=== PATIENT | male | born 1990 | race Caucasian/White ===

== ENCOUNTER 2025-02-16 02:29 | Emergency (ER) | payer OTHER, SELFPAY ==
[2025-02-16] VITALS (8 sets, daily range): BP systolic 121–138; BP diastolic 69–70; PULSE 91–109; RESP 12–16; TEMP 36.4; O2SAT 97–100
--- NOTE | 2025-02-16 02:31 | ECG_ITS ---
Test Date: 2025-02-16 02:31:07 Measurements Intervals [place] Rate: 103 P: 77 ME: 140 QRS: 59 QRSD: 106 T: 65 QT: 333 QTc: 436 Interpretive Statements SINUS TACHYCARDIA POSSIBLE LEFT ATRIAL ENLARGEMENT INCOMPLETE RIGHT BUNDLE BRANCH BLOCK BASELINE ARTIFACT- I, II, AVR BORDERLINE ECG No previous ECG available for comparison Electronically Signed On 02-16-2025 10:20:30 CDT by Kvng Maharaj D.O.
--- NOTE | 2025-02-16 02:48 | ED.ASTHMA ---
HPI - Asthma General Chief Complaint: Asthma Stated Complaint: ASTHMA ATTACK Time Seen by Provider: 02/16/25 02:31 History of Present Illness HPI Narrative: Patient is a 34-year-old male who presents to the emergency department this evening complaining of an asthma attack. Patient states that he woke up and went to go use the bathroom and started having shortness of breath. Patient used a few puffs of his inhaler with no relief. He did inform family members who drove him to a police station and please called EMS and patient was brought to our facility for further evaluation. Upon EMS arrival, patient was having bilateral wheezing with rapid respirations. Patient was administered a DuoNeb breathing treatment with significant improvement of his symptoms and near resolution of his wheezing. Patient states that he feels significantly better. Denies any additional symptoms or concerns at this time. Related Data Allergies Allergy/AdvReac Type Severity Reaction Status Date / Time No Known Allergies Allergy Verified 02/16/25 02:46 Review of Systems Review of Systems: All systems are reviewed and are negative unless stated otherwise in the HPI. Exam Narrative: General: Alert, awake, afebrile, in no acute distress. HEENT: PERRL, no rhinorrhea, no post nasal drip, oropharynx clear. Neck: Trachea midline, no JVD, no lymphadenopathy. Cardiovascular: Regular rate and rhythm, no murmurs, rubs or gallops, no peripheral edema. Respiratory: Very faint and expiratory wheeze, no tachypnea, no respiratory distress. Abdomen: Soft, nontender, nondistended, no rebound, no guarding, no peritoneal signs. Musculoskeletal: No joint swelling or deformity, normal muscle tone. Skin: No rashes or petechia, no signs of infection. Psychiatric: Alert and oriented, normal behavior and judgment for situation. Neurological: Alert and oriented to person, place, and time. Follows all commands. No focal deficits, speech is clear and fluent. Course Vital Signs Vital signs: Vital Signs Temperature 97.6 F 02/16/25 02:28 Pulse Rate 103 H 02/16/25 02:28 Respiratory Rate 12 02/16/25 02:28 Blood Pressure 138/70 02/16/25 02:28 Pulse Oximetry 97 02/16/25 02:28 Temperature 97.6 F 02/16/25 02:28 Pulse Rate 109 H 02/16/25 02:45 Respiratory Rate 12 02/16/25 02:28 Blood Pressure 138/70 02/16/25 02:28 Pulse Oximetry 98 02/16/25 02:44 Oxygen Delivery Room Air 02/16/25 02:44 MDM - Asthma MDM Narrative Medical decision making narrative: The patient was evaluated by myself in the emergency department. History is obtained from patient who is an independent historian and physical exam was performed. External medical records were reviewed at this time. Patient was administered a 2nd DuoNeb breathing treatment in the emergency department and 125 mg of IM Solu-Medrol pain Differential diagnosis considerations include asthma exacerbation, acute viral syndrome, bronchospasms, pneumonia although unlikely giving patient's sudden onset symptoms and lack of infectious signs such as fever. Comorbidities impacting this visit include history of asthma. I have evaluated and discussed social determinants of health with the patient that could potentially impact subsequent diagnosis and treatment plans. On repeat assessment of the patient, reevaluation revealed that the patient is doing well and is in no acute distress. Patient symptoms have improved since he arrived to our emergency department. Repeat vital signs were all reviewed and noted to be stable. Differential diagnosis and treatment plan were discussed with the patient at bedside. Patient agrees with discussion and after shared medical decision making agrees with discharge. All questions were answered to the patient's satisfaction. Patient will follow up with his PCP in 3-5 days. A script for Medrol Dosepak was advised pharmacy to use as prescribed for his asthma. Patient was provided with strict return precautions and instructed to return to the emergency department if any new or worsening symptoms develop. The patient was discharged in stable condition. Discharge Plan Discharge Clinical Impression: Asthma with acute exacerbation Patient Disposition: Home Condition: Improved Instructions: Antibiotic Form, Asthma (ED) Additional Instructions: Please follow-up with your family doctor within the next 3-5 days. Take the prescribed steroids as instructed. Return to the ED if any new or worsening symptoms develop. Patient Language: Wallisian Prescriptions: New methylprednisolone [Medrol (Balta)] 4 mg tablets,dose pack See Rx Instructions .ROUTE .COMPLEX Qty: 21 0RF Rx Instructions: for 6 days Time of Disposition: 02:47
--- OUTSIDE RECORDS SUMMARY | 2025-02-16 02:59 | XMS_ITS | Encounter Summary ---
Author Organization [facility] Address [address] [place] [address] Phone Care Team Providers Care Card Cleaner Name Role Phone Meredith Rodriguez MD Primary Care Provider Silvano Rizvi APRN, CNP Primary Care Pr ovider Reason for Visit * Reason Comments Medication Refill Encounter Details Date Type Department Care Team (Late st Contact Info) Description 04/28/2020 Refill [facility] [address] [place] [address] Meredith Rodriguez MD [address] [place] [address] Medication Refill Social History Tobacco Use Types Packs/Day Years Used Date Smoking Tobacco: Former Cigarettes Q uit: 05/19/2018 Smokeless Tobacco: Never Alcohol Use Standard Drinks/Week Comments Yes 1 (1 standard drink = 0.6 oz pur e alcohol) Sexually Active Control Partners Comments Yes Sex and Gender Information Value Date Recorded Sex Assigned at Not on file Legal Sex Male 11:39 PM CDT Gender Identity Not on file Sexual Orientation Not on file documented as of this encounter Miscellaneous Notes * Telephone Encounter - Reyna Cordoba [place] - 04/29/2020 8:49 AM CDT Medication failed the protocol provider to review and approve the medication order. Requested Prescriptions Pending Prescriptions Disp Refills Qvar RediHaler 80 MCG/ACT AEROSOL, BREATH ACTIVATED [Pharmacy Med Name: Qvar RediHaler 80 MCG/ACT Inhalation Aerosol Breath Activated] 1 Inhaler 4 Sig: Inhale 2 puffs by mouth twice daily Pulmonology: Corticosteroids Passed - 04/28/2020 5:30 AM Passed - Valid encounter within last 12 months Past Office Visits Recent Outpatient Visits 3 months ago Uncomplicated asthma, unspecified asthma severity, unspecified whether persistent [facility] - Primary Care Meredith Rodriguez MD 1 year ago Pityriasis rosea [facility] Medical [facility] - Primary Care Meredith Rodriguez MD 1 year ago Encounter for preventive health examination (Adult) [facility] - Primary Care Nadja Bal APN, CHRISTEL 2 years ago Depression with anxiety [facility] Meredith Rodriguez MD 2 years ago Depression with anxiety [facility] Primary [facility] Meredith Rodriguez MD Upcoming Appointments [facility] - Recent and Past Visits Recent Visits Date Type Provider Dept 01/01/20 Telemedicine Meredith Rodriguez MD [facility] Showing recent visits within past 460 days with a meds authorizing provider and meeting all other requirements Future Appointments No visits were found meeting these conditions. Showing future appointments within next 90 days with a meds authorizing provider and meeting all other requirements * Telephone Encounter - Reyna Cordoba - 04/29/2020 8:49 AM CDT Quantity greater than originally prescribed, routing to PCP for approval. documented in this encounter Plan of Treatment Not on file documented as of this encounter Visit Diagnoses Diagnosis Uncomplicated asthma, unspecified asthma severity, unspecified whether persistent documented in this encounter Additional Health Concerns Infection Onset Date Last Indicated Resolved Time COVID - 19 07/30/2021 07/30/2021 08/19/2021 12:1 6 AM CHAIR Assessment Noted Time PHQ-9 Depression Total Score: 0 10/24/19 18 12:45 PM CHAIR documented as of this encounter Care Teams Card Cleaner Relationship Specialty Start Date End Date Meredith Rodriguez MD PCP - General Family Medicine 06/22/15 03/28/22 Silvano Rizvi APRN, [employer] [address] [place] [address] PCP - General Advanced Practice Nurse 03/29/22 documented as of this encounter
--- OUTSIDE RECORDS SUMMARY | 2025-02-16 02:59 | XMS_ITS | Encounter Summary ---
Author Organization [facility] Address [address] [place] [address] Phone Care Team Providers Care Quiller Operator Name Role Phone Meredith Rodriguez MD Primary Care Provider [phone] Silvano Rizvi APRN, FUELER Primary Care Pr ovider Reason for Visit * Reason Onset Date Comments Medication Refill Medication Refill 09/20/2020 albuterol Encounter Details Date Type Department Care Team (Late st Contact Info) Description 09/16/[address] [facility] [address] [place] [address] Meredith Rodriguez MD [address] [place], [place] [id number] Medication Refill; Medication Refill (albuterol ) Social History Tobacco Use Types Packs/Day Years Used Date Smoking Tobacco: Every Day Cigarettes Last attempted to quit: 05/19/2018 Smokeless Tobacco: Never Alcohol Use Standard [...] encounter Miscellaneous Notes * Telephone Encounter - Jesenia Siegel RN - 09/20/2020 9:34 AM PERSONAL LINES INSURANCE AGENT Medication failed the protocol, provider to review and approve the medication order if appropriate. Requested Prescriptions Pending Prescriptions Disp Refills albuterol (ProAir HFA) 108 (90 Base) MCG/ACT Aerosol Solution 18 g 0 Sig: take 2 Puffs by inhalation every 4 hours as needed for Wheezing. Pulmonology: Beta Agonists - Albuterol & Levalbuterol Failed - 09/20/2020 8:50 AM Failed - Valid encounter within last 6 months Past Office Visits Recent Outpatient Visits 8 months ago Uncomplicated asthma, unspecified asthma severity, unspecified whether persistent [facility] - Meredith Ying MD 2 years ago Pityriasis rosea [facility] - Meredith Ying MD 2 years ago Encounter for preventive health examination (Adult) [facility] Villed[facility] APN, CHRISTEL 2 years ago Depression with anxiety [facility] - Meredith Carrero MD 3 years ago Depression with anxiety [facility] - Meredith Carrero MD Upcoming Appointments Future Appointments In 3 weeks Meredith Rodriguez MD [facility] CIGARETTE INSPECTOR - Recent and Past Visits Recent Visits Date Type Provider Dept 01/01/20 Telemedicine Meredith Rodriguez MD [facility] Showing recent visits within past 460 days with a meds authorizing provider and meeting all other requirements Future Appointments Date Type Provider Dept 10/11/20 Appointment Meredith Rodriguez MD [facility] Showing future appointments within next 90 days with a meds authorizing provider and meeting all other requirements Failed - May refill 2 inhalers, 0 refills one time since last office visit. May refill #50 nebulizer vials, 0 refills for albuterol or #48 vials, 0 refills for Xopenex one time since last office visit. Passed - Last BP in normal range BP Readings from Last 1 Encounters: 07/03/20 92/66 Signed Prescriptions Disp Refills Qvar RediHaler 80 MCG/ACT AEROSOL, BREATH ACTIVATED 11 g 0 Sig: Inhale 2 puffs by mouth twice daily Pulmonology: Corticosteroids Passed - 09/19/2020 10:55 AM Passed - Valid encounter within last 12 months Past Office Visits Recent Outpatient Visits 8 months ago Uncomplicated asthma, unspecified asthma severity, unspecified whether persistent [facility] - Meredith Ying MD 2 years ago Evans aldridge [facility] - Meredith Ying MD 2 years ago Encounter for preventive health examination (Adult) [facility] Decker APN, FUELER 2 years ago Depression with anxiety [facility] Meredith Carrero MD 3 years ago Depression with anxiety [facility] Meredith Carrero MD Upcoming Appointments Future Appointments In 3 weeks Meredith Rodriguez MD [facility] - Recent and Past Visits Recent Visits Date Type Provider Dept 01/01/20 Telemedicine Meredith Rodriguez MD [facility] Showing recent visits within past 460 days with a meds authorizing provider and meeting all other requirements Future Appointments Date Type Provider Dept 10/11/20 Appointment Meredith Rodriguez MD [facility] Showing future appointments within next 90 days with a meds authorizing provider and meeting all other requirements ProAir HFA 108 (90 Base) MCG/ACT Aerosol Solution 18 g 0 Sig: INHALE 2 PUFFS BY MOUTH EVERY 4 HOURS NEEDED FOR WHEEZING Pulmonology: Beta Agonists - Albuterol & Levalbuterol Failed - 09/19/2020 10:55 AM Failed - Valid encounter within last 6 months Past Office Visits Recent Outpatient Visits 8 months ago Uncomplicated asthma, unspecified asthma severity, unspecified whether persistent [facility] - Meredith Ying MD 2 years ago Pityrreema aldridge [facility] - Meredith Ying MD 2 years ago Encounter for preventive health examination (Adult) [facility] Villeda APN, FUELER 2 years ago Depression with anxiety [facility] Meredith Carrero MD 3 years ago Depression with anxiety [facility] Medical [facility] - Meredith Carrero MD Upcoming Appointments Future Appointments In 3 weeks Meredith Rodriguez MD [facility] CIGARETTE INSPECTOR - Recent and Past Visits Recent Visits Date Type Provider Dept 01/01/20 Telemedicine Meredith Rodriguez MD [facility] Showing recent visits within past 460 days with a meds authorizing provider and meeting all other requirements Future Appointments Date Type Provider Dept 10/11/20 Appointment Meredith Rodriguez MD [facility] Showing future appointments within next 90 days with a meds authorizing provider and meeting all other requirements Failed - May refill 2 inhalers, 0 refills one time since last office visit. May refill #50 nebulizer vials, 0 refills for albuterol or #48 vials, 0 refills for Xopenex one time since last office visit. Passed - Last BP in normal range BP Readings from Last 1 Encounters: 07/03/20 92/66 ONAL LINES INSURANCE AGENT * Telephone Encounter - Kenya Soares - 09/20/2020 8:46 AM CST [facility] called stating ProAir brand is not covered and is requesting Rx for generic for coverage. Rx from 09/19/20 ordered with DANNY 1 (brand only) Previous order from 01/01/20 ordered as generic. Received: []FAX [x]TELEPHONE CALL []MYCHART from: []PHARMACY [x]PATIENT/OTHER regarding medication management. Medication name and dose: Requested Prescriptions Signed Prescriptions Disp Refills ??? Qvar RediHaler 80 MCG/ACT AEROSOL, BREATH ACTIVATED 11 g 0 Sig: Inhale 2 puffs by mouth twice daily Authorizing Provider: MEREDITH RODRIGUEZ ??? ProAir HFA 108 (90 Base) MCG/ACT Aerosol Solution 18 g 0 Sig: INHALE 2 PUFFS BY MOUTH EVERY 4 HOURS NEEDED FOR WHEEZING Authorizing Provider: MEREDITH RODRIGUEZ Quantity: (30 day, 90 day, 3 monthly scripts) 11 g Pharmacy preference for this medication: [facility] [place] Outcome: [x]Medication pended, routed to surescripts []Medication refused []Informed caller of refills at pharmacy [x]Additional message to medication management RN []Verbal authorization for written order to pharmacy [x]Additional message to provider []Verified medication with pharmacy Eda Reveles MA Medication Management ONAL LINES INSURANCE AGENT * Telephone Encounter - Shanda Madera, [facility] - 09/19/2020 10:55 AM PERSONAL LINES INSURANCE AGENT Medication failed the protocol, provider to review and approve the medication order if appropriate. Requested Prescriptions Pending Prescriptions Disp Refills Qvar RediHaler 80 MCG/ACT AEROSOL, BREATH ACTIVATED [Pharmacy Med Name: Qvar RediHaler 80 MCG/ACT Inhalation Aerosol Breath Activated] 11 g 0 Sig: Inhale 2 puffs by mouth twice daily Pulmonology: Corticosteroids Passed - 09/19/2020 10:55 AM Passed - Valid encounter within last 12 months Past Office Visits Recent Outpatient Visits 8 months ago Uncomplicated asthma, unspecified asthma severity, unspecified whether persistent [facility] - Meredith Ying MD 2 years ago Pityriasis rosea [facility] - Meredith Ying MD 2 years ago Encounter for preventive health examination (Adult) [facility] Nadja Bal APN, FUELER 2 years ago Depression with anxiety [facility] - Meredith Carrero MD 3 years ago Depression with anxiety [facility] Meredith Carrero MD Upcoming Appointments Future Appointments In 3 weeks Meredith Rodriguez MD [facility] [place] CIGARETTE INSPECTOR - Recent and Past Visits Recent Visits Date Type Provider Dept 01/01/20 Telemedicine Meredith Rodriguez MD [facility] [place] [place] Showing recent visits within past 460 days with a meds authorizing provider and meeting all other requirements Future Appointments Date Type Provider Dept 10/11/20 Appointment Meredith Rodriguez MD [facility] Showing future appointments within next 90 days with a meds authorizing provider and meeting all other requirements ProAir HFA 108 (90 Base) MCG/ACT Aerosol Solution [Pharmacy Med Name: ProAir HFA 108 (90 Base) MCG/ACT Inhalation Aerosol Solution] 18 g 0 Sig: INHALE 2 PUFFS BY MOUTH EVERY 4 HOURS NEEDED FOR WHEEZING Pulmonology: Beta Agonists - Albuterol & Levalbuterol Failed - 09/19/2020 10:55 AM Failed - Valid encounter within last 6 months Past Office Visits Recent Outpatient Visits 8 months ago Uncomplicated asthma, unspecified asthma severity, unspecified whether persistent [facility] - Meredith Ying MD 2 years ago Pityriasis rosea [facility] - Meredith Ying MD 2 years ago Encounter for preventive health examination (Adult) [facility] Nadja Bal APN, FUELER 2 years ago Depression with anxiety [facility] - Meredith Carrero MD 3 years ago Depression with anxiety [facility] - Meredith Carrero MD Upcoming Appointments Future Appointments In 3 weeks Meredith Rodriguez MD [facility] - Recent and Past Visits Recent Visits Date Type Provider Dept 01/01/20 Telemedicine Meredith Rodriguez MD [facility] Showing recent visits within past 460 days with a meds authorizing provider and meeting all other requirements Future Appointments Date Type Provider Dept 10/11/20 Appointment Meredith Rodriguez MD [facility] Showing future appointments within next 90 days with a meds authorizing provider and meeting all other requirements Failed - May refill 2 inhalers, 0 refills one time since last office visit. May refill #50 nebulizer vials, 0 refills for albuterol or #48 vials, 0 refills for Xopenex one time since last office visit. Passed - Last BP in normal range BP Readings from Last 1 Encounters: 07/03/20 92/66 ONAL LINES INSURANCE AGENT documented in this encounter Plan of Treatment Not on file documented as of this encounter Visit Diagnoses Diagnosis Uncomplicated asthma, unspecified asthma severity, unspecified whether persistent documented in this encounter Additional Health Concerns Infection Onset Date Last Indicated Resolved Time COVID - 19 07/30/2021 07/30/2021 08/19/2021 12:1 6 AM PERSONAL LINES INSURANCE AGENT Assessment Noted Time PHQ-9 Depression Total Score: 0 10/24/19 18 12:45 PM PERSONAL LINES INSURANCE AGENT documented as of this encounter Care Teams Quiller Operator Relationship Specialty Start Date End Date Meredith Rodriguez MD PCP - General Family Medicine 06/22/15 03/28/22 Silvano Rizvi APRN, [facility]ER [address] [address] PCP - General Advanced Practice Nurse 03/29/22 documented as of this encounter
--- OUTSIDE RECORDS SUMMARY | 2025-02-16 02:59 | XMS_ITS | Clinical Summary ---
Author Organization [facility] Address [address] [place] [address] Care Team Providers Care Marshmallow Maker Name Role Phone No, Physician Primary Care Provider [phone] Allergies No known active allergies Medications beclomethasone (QVAR) 80 mcg/actuation inhaler inhale 2 puff by inhalation route 2 times every day 0 Inhaler 0 6 Active albuterol HFA (PROVENTIL HFA,VENTOLIN HFA) 90 mcg/actuation inhaler inhale 2 puff by inhalation route every 4 - 6 hours as needed 0 Inhaler 0 6 Active albuterol HFA (PROVENTIL HFA,VENTOLIN HFA,PROAIR HFA) 90 mcg/actuation inhaler Inhale 2 puffs every 4 (four) hours as needed for wheezing 1 each 3 4 05/11/20 25 Active Active Problems Problem Noted Date Diagnosed Date Impacted cerumen 10/08/2015 Overview (12/14/2016): Impacted cerumen of left ear Social History Tobacco Use Types Packs/Day Years Used Date Smoking Tobacco: Never Assessed Personal Safety Answer Date Recorded Have you ever been in or are you currently in a harmful physical or emotional relationship or is someone making you feel afraid or unsafe? Denies 05/10/2024 Sex and Gender Information Value Date Recorded Sex Assigned at Not on file Legal Sex Male 3:58 AM MARKETING FINANCE MANAGER Gender Identity Not on file Sexual Orientation Not on file Obstetrics History Last Filed Vital Signs Vital Sign Reading Time Taken Comments Blood Pressure 120/66 05/11/2024 2:45 AM CDT Pulse 56 05/11/2024 2:45 AM CDT Temperature 37 C (98.6 F) 05/10/2024 11:27 PM CDT Respiratory Rate 16 05/11/2024 2:45 AM CDT Oxygen Saturation 95% 05/11/2024 2:45 AM CDT Inhaled Oxygen Concentration - - Weight 72.6 kg (160 lb) 05/10/2024 11:27 PM CDT Height 175.3 cm (5' 9) 05/10/2024 11:27 PM CDT Body Mass Index 23.63 05/10/2024 11:27 PM CDT Plan of Treatment Health Maintenance Due Date Last Done Comments Depression Screening 1991 Hepatitis C Screening 1991 Varicella Vaccines (1 of 2 - 13+ 2-dose series) 2004 Regular Well Visit/Exam 18-64 2009 Pneumococcal vaccine <65 (2 of 2 - PCV) 04/09/2012 04/09/2011 Covid-19 Vaccine (2 - 2023-2 5 season) 2024 01/24/2021 Influenza Vaccine (Season Ended) 2025 DTaP/Tdap/Td Vaccine (2 - Td or Tdap) 02/11/2027 02/11/2017, 09/09/2007 Hepatitis B Screening Completed 11/28/2001 , 07/04/2001, 05/30/2001 HPV Vaccines Aged Out No longer eligi ble based on patient's age to complete this topic Insurance [place] [employer] Care Teams Marshmallow Maker Relationship Specialty Start Date End Date No, Physician PCP - General 05/11/24
--- OUTSIDE RECORDS SUMMARY | 2025-02-16 02:59 | XMS_ITS | Encounter Summary ---
Author Organization [facility] Address [address] [place] [address] Phone Care Team Providers Care Windmill Technician Name Role Phone Meredith Rodriguez MD Primary Care Provider [phone] Silvano Rizvi APRN, MILLING/POLISHING OPERATOR Primary Care Pr ovider Reason for Visit * Reason Comments Medication Refill Encounter Details Date Type Department Care Team (Late st Contact Info) Description 03/06/2021 Refill [facility] [address] [place], [place] [id number] Meredith Rodriguez MD [address] [place], [place] [id number] Medication Refill Social History Tobacco Use Types [...] on file documented as of this encounter Plan of Treatment Not on file documented as of this encounter Visit Diagnoses Diagnosis Uncomplicated asthma, unspecified asthma severity, unspecified whether persistent documented in this encounter Additional Health Concerns Infection Onset Date Last Indicated Resolved Time COVID - 19 07/30/2021 07/30/2021 08/19/2021 12:1 6 AM BUSINESS SALES CONSULTANT Assessment Noted Time PHQ-9 Depression Total Score: 0 10/24/19 18 12:45 PM BUSINESS SALES CONSULTANT documented as of this encounter Care Teams Windmill Technician Relationship Specialty Start Date End Date Meredith Rodriguez MD PCP - General Family Medicine 06/22/15 03/28/22 Silvano Rizvi APRN, MILLING/POLISHING OPERATOR [address] [place] [id number] PCP - General Advanced Practice Nurse 03/29/22 documented as of this encounter
--- OUTSIDE RECORDS SUMMARY | 2025-02-16 02:59 | XMS_ITS | Referral Summary ---
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
--- OUTSIDE RECORDS SUMMARY | 2025-02-16 02:59 | XMS_ITS | Encounter Summary ---
Author Organization [facility] Address [address] [place] [address] Phone Care Team Providers Care Collision Repair Technician Name Role Phone Meredith Rodriguez MD Primary Care Provider Silvano Rizvi APRN, COMMERCIAL LOAN MANAGER Primary Care Pr ovider Reason for Visit * Reason Comments Medication Refill Encounter Details Date Type Department Care Team (Late st Contact Info) Description 12/09/2020 Refill [facility] [address] [place], [place] [id number] Meredith Rodriguez MD [address] [place], [place] [id number] Medication Refill Social History Tobacco Use Types [...] encounter Miscellaneous Notes * Telephone Encounter - Colette Tabares RN - 12/09/2020 2:26 PM CDT Per nursing clinical judgement, provider to review and approve the medication(s) order(s) if appropriate. Requested Prescriptions Pending Prescriptions Disp Refills Qvar RediHaler 80 MCG/ACT AEROSOL, BREATH ACTIVATED [Pharmacy Med Name: Qvar RediHaler 80 MCG/ACT Inhalation Aerosol Breath Activated] 11 g 0 Sig: Inhale 2 puffs by mouth twice daily Pulmonology: Corticosteroids Passed - 12/09/2020 2:25 PM Passed - Valid encounter within last 12 months Past Office Visits Recent Outpatient Visits 1 month ago Physical exam, annual (Adult) [facility] Meredith Rodriguez MD 11 months ago Uncomplicated asthma, unspecified asthma severity, unspecified whether persistent [facility] 2 years ago Pityriasis rosea [facility] MD 2 years ago Encounter for preventive health examination (Adult) [facility] [place] [facility] Nadja Bal APN, CHRISTEL 3 years ago Depression with anxiety [facility] Meredith Carrero MD Upcoming Appointments BOWLING BALL MOLD ASSEMBLER - Recent and Past Visits Recent Visits Date Type Provider Dept 10/11/20 Office Visit Meredith Rodriguez MD [facility] 01/01/20 Telemedicine Meredith Rodriguez MD [facility] Showing recent visits within past 460 days with a meds authorizing provider and meeting all other requirements Future Appointments No visits were found meeting these conditions. Showing future appointments within next 90 days with a meds authorizing provider and meeting all other requirements documented in this encounter Plan of Treatment Not on file documented as of this encounter Visit Diagnoses Diagnosis Uncomplicated asthma, unspecified asthma severity, unspecified whether persistent documented in this encounter Additional Health Concerns Infection Onset Date Last Indicated Resolved Time COVID - 19 07/30/2021 07/30/2021 08/19/2021 12:1 6 AM THERAPEUTIC ACTIVITIES SERVICES WORKER Assessment Noted Time PHQ-9 Depression Total Score: 0 10/24/19 18 12:45 PM THERAPEUTIC ACTIVITIES SERVICES WORKER documented as of this encounter Care Teams Collision Repair Technician Relationship Specialty Start Date End Date Meredith Rodriguez MD PCP - General Family Medicine 06/22/15 03/28/22 Silvano Rizvi APRN, COMMERCIAL LOAN MANAGER #[address] [id number] PCP - General Advanced Practice Nurse 03/29/22 documented as of this encounter
--- OUTSIDE RECORDS SUMMARY | 2025-02-16 02:59 | XMS_ITS | Clinical Summary ---
Author Organization [facility] Address [address], [facility] [address] [place] [address] Phone Care Team Providers Care Investment Broker Name Role Phone Silvano Rizvi APRN, CHRISTEL Primary Care Pr ovider Allergies Active Allergy Reactions Criticality Noted Date Comments Other Unknown Seasonal Allergies, Triaminic cough syrup- caused an asthma attack when pt was a child Medications Beclomethasone Diprop HFA (Qvar RediHaler) 80 MCG/ACT AEROSOL, BREATH ACTIVATEDIndicat ions:Uncomplicat ed asthma, unspecified asthma severity, unspecified whether persistent take 2 Puffs by inhalation in the morning and at bedtime. 11 g 2 Active albuterol 108 (90 Base) MCG/ACT Aerosol SolutionIndicati ons:Uncomplicate d asthma, unspecified asthma severity, unspecified whether persistent take 2 Puffs by inhalation every 4 hours as needed for Wheezing. 18 g 5 2 Active Nutritional Supplements (NUTRITIONAL SUPPLEMENT PO) Take by mouth daily. Anthony growth supplement Active fluticasone (FLONASE) 50 MCG/ACT Suspension 1-2 Sprays by Nasal route daily. Use in each nostril as directed. 11.1 mL 3 Active neomycin-polymyx in-dexamethasone (MAXITROL) 3.5-89843-8.1 SuspensionIndica tions:Other infective acute otitis externa of both ears Place 4 Drops in both ears 2 times daily. 5 mL 4 Active Active Problems Problem Noted Date Diagnosed Date IFG (impaired fasting glucose) 10/11/2020 Tobacco use disorder 08/22/2017 Seasonal allergic rhinitis 10/04/2016 Depression with anxiety 10/04/2016 Gastroesophageal reflux disease 10/04/2016 Asthma Overview (07/22/2015): At age 3 High triglycerides Immunizations Immunization Administration Dates Next Due Hepatitis B Vaccine, Pediatric/adolescent 2001,07/04/2001,05/30/2001 Pneumococcal Vaccine Adult - 23 Valent 1 TD VACCINE 09/09/2007 TDAP Vaccine 02/11/2017 Social History Tobacco Use Types Packs/Day Years Used Date Smoking Tobacco: Every Day Cigarettes Last attempted to quit: 05/19/2018 Smokeless Tobacco: Never Tobacco Cessation:Ready to Q uit: Not Asked; Counseling Given: Not Answered Alcohol Use Standard Drinks/Week Comments Yes 1 (1 standard drink = 0.6 oz pur e alcohol) Occasionally Sexually Active Control Partners Comments Yes Sex and Gender Information Value Date Recorded Sex Assigned at Not on file Legal Sex Male 11:39 PM CDT Gender Identity Not on file Sexual Orientation Not on file Last Filed Vital Signs Vital Sign Reading Time Taken Comments Blood Pressure 114/70 01/06/2024 2:15 PM CDT Pulse 70 01/06/2024 2:15 PM CDT Temperature 36.9 C (98.4 F) 01/06/2024 2:15 PM CDT Respiratory Rate 16 01/06/2024 2:15 PM CDT Oxygen Saturation 99% 01/06/2024 2:15 PM CDT Inhaled Oxygen Concentration - - Weight 72.6 kg (160 lb) 06/25/2023 5:01 PM CDT Height 182.9 cm (6') 07/20/2022 1:51 PM HEAD GAUGE UNIT OPERATOR Body Mass Index 21.7 07/20/2022 1:51 PM HEAD GAUGE UNIT OPERATOR Plan of Treatment Health Maintenance Due Date Last Done Comments Hepatitis C Virus (HCV) Screening 1991 Pneumococcal Immunization Combined (2 of 2 - PCV) 04/09/2012 04/09/2011 Influenza Immunization (#1) 2024 SARS-COV-2 Immunization (2 - season) 2024 01/24/2021 Td Immunization Every 10 Yea rs (Adults With 1 Tdap) 02/11/2027 02/11/2017, 09/09/2007 Respiratory Syncytial Virus (RSV) Immunization (Adult) (1 - 1-dose 75+ series) 2066 Hepatitis B Immunization Completed 11/28/ 002, 07/04/2001, 05/30/2001 Meningococcal Immunization (ACWY) Aged Out No longer eligible b ased on patient's age to complete this topic Rotavirus Immunization Aged Out No lo nger eligible based on patient's age to complete this topic [place] [address] [facility] Care Teams Investment Broker Relationship Specialty Start Date End Date Silvano Rizvi APRN, SUPERVISOR [employer] [address] [address] PCP - General Advanced Practice Nurse 03/29/22
--- OUTSIDE RECORDS SUMMARY | 2025-02-16 02:59 | XMS_ITS | Encounter Summary ---
Author Organization [facility] Address [address] [place] [address] Phone Care Team Providers Care Fence Laborer Name Role Phone Meredith Rodriguez MD Primary Care Provider [phone] Silvano Rizvi APRN, CNP Primary Care Pr ovider Reason for Visit * Reason Comments Medication Refill Encounter Details Date Type Department Care Team (Late st Contact Info) Description 12/07/2021 Refill [facility] [place] [address] [place] [address] Meredith Rodriguez MD [address] [place] [address] Medication Refill Social History Tobacco [...] encounter Miscellaneous Notes * Telephone Encounter - Meredith Rodriguez MD - 12/07/2021 10:16 PM CDT He needs a follow-up annual physical appointment with me. * Telephone Encounter - Asia Ramirez RN - 12/07/2021 2:05 PM CDT Medication failed the protocol, provider to review and approve the medication order if appropriate. Requested Prescriptions Pending Prescriptions Disp Refills albuterol 108 (90 Base) MCG/ACT Aerosol Solution [Pharmacy Med Name: Albuterol Sulfate HFA 108 (90 Base) MCG/ACT Inhalation Aerosol Solution] 18 g 0 Sig: INHALE 2 PUFFS BY MOUTH EVERY 4 HOURS NEEDED FOR WHEEZING Short Acting Inhaled Beta-Agonists Protocol Failed - 12/07/2021 1:33 PM Failed - Visit with relevant provider in past 12 months or upcoming 90 days Recent Visits No visits were found meeting these conditions. Showing recent visits within past 365 days and meeting all other requirements Future Appointments No visits were found meeting these conditions. Showing future appointments within next 90 days and meeting all other requirements Qvar RediHaler 80 MCG/ACT AEROSOL, BREATH ACTIVATED [Pharmacy Med Name: Qvar RediHaler 80 MCG/ACT Inhalation Aerosol Breath Activated] 11 g 0 Sig: Inhale 2 puffs by mouth twice daily Inhaled Steroids Protocol Failed - 12/07/2021 1:33 PM Failed - Visit with relevant provider in past 12 months or upcoming 90 days Recent Visits No visits were found meeting these conditions. Showing recent visits within past 365 days and meeting all other requirements Future Appointments No visits were found meeting these conditions. Showing future appointments within next 90 days and meeting all other requirements Passed - Active short-acting beta agonist prescription documented in this encounter Plan of Treatment Not on file documented as of this encounter Visit Diagnoses Diagnosis Uncomplicated asthma, unspecified asthma severity, unspecified whether persistent documented in this encounter Additional Health Concerns Assessment Noted Time PHQ-9 Depression Total Score: 0 10/24/19 18 12:45 PM CARDIOLOGY PHYSICIAN documented as of this encounter Care Teams Fence Laborer Relationship Specialty Start Date End Date Meredith Rodriguez MD PCP - General Family Medicine 06/22/15 03/28/22 Silvano Rizvi, AVANI, HYGIENE TEACHER [address] [place] [address] PCP - General Advanced Practice Nurse 03/29/22 documented as of this encounter
[2025-02-16] MEDS: IPRATROPIUM 0.5 MG/ALBUTEROL SULFATE 2.5 MG AMPUL.NEB 3 ML INHALATION (03:16)
[2025-02-16] MEDS: methylPREDNISolone SOD SUCC 125 MG VIAL IM (03:30)
== END 2025-02-16 03:37 | disposition home or self-care (01) ==
PROVIDERS: Emergency Provider Emergency Medicine
DX: J45.901 Unspecified asthma with (acute) exacerbation (principal)
CPT/HCPCS: 93005; 94640; 96372; 99283; J2919